=== PATIENT | male | born 1980 | race Caucasian/White ===

== ENCOUNTER 2017-10-13 15:15 | Emergency (ER) | payer BC ==
[~2017-10-13] VITALS: Ht 177.8 cm; Wt 142.9 kg
[~2017-10-13 15:15] MED LIST: A/B OTIC15 ML; APAP500 MG PO; CALCIUM1 TA1 PO; MAGNESIUM OXID400 MG PO; VITAMIN B121000 MCG PO
[2017-10-13 17:45] VITALS: BP 134/89
== END 2017-10-13 17:25 | disposition home or self-care (01) ==
LOC: ED 15:15
DX: M25.572 Pain in left ankle and joints of left foot (principal); M79.89 Other specified soft tissue disorders; X50.1XXA Overexertion from prolonged static or awkward postures, initial encounter; Y93.89 Activity, other specified; Y99.8 Other external cause status; Y92.89 Other specified places as the place of occurrence of the external cause

== ENCOUNTER 2018-02-14 16:03 | Emergency (ER) | payer BC ==
[~2018-02-14] VITALS: Ht 175.3 cm; Wt 146.5 kg
[2018-02-14 16:06] VITALS: Ht 175.3 cm; Wt 146.5 kg
[2018-02-14 17:10] VITALS: BP 143/76
== END 2018-02-14 17:10 | disposition home or self-care (01) ==
LOC: ED 16:03
DX: K08.89 Other specified disorders of teeth and supporting structures (principal); R03.0 Elevated blood-pressure reading, without diagnosis of hypertension
CPT/HCPCS: J0696; J1885

== ENCOUNTER 2018-04-04 21:09 | Inpatient (IN) | payer BC ==
[~2018-04-04] VITALS: Ht 175.3 cm; Wt 149.7 kg
[2018-04-04 21:11] VITALS: Ht 175.3 cm; Wt 149.7 kg
[2018-04-04 22:15] LABS: BASOPHIL % 0.5 % (0-2); PLATELET COUNT 293 x10^3mcL (130-400)
[2018-04-04 22:16] LABS: RED CELL DISTRIBUTION WIDTH 14.9 % (11.5-14.5)
[2018-04-04 22:31] LABS: ALKALINE PHOSPHATASE 91 U/L (46-116); AST/SGOT 19 U/L (15-37); BILIRUBIN TOTAL 0.27 mg/dL (0.20-1.00); CARBON DIOXIDE 28.4 mmol/L (21-32); CHLORIDE SERUM 106 mmol/L (98-107); MAGNESIUM 2.2 mg/dL (1.8-2.4); POTASSIUM SERUM 3.7 mmol/L (3.5-5.1); SODIUM SERUM 143 mmol/L (136-145); TOTAL PROTEIN, SERUM 7.2 g/dL (6.4-8.2)
[2018-04-04 22:38] LABS: T3 TOTAL 1.28 ng/mL
[2018-04-04 22:42] LABS: ALBUMIN 3.6 g/dL (3.4-5.0); ALT/SGPT 47 U/L (16-63); CALCIUM 8.7 mg/dL (8.5-10.1); CREATININE SERUM 1.1 mg/dL (0.7-1.3); GFR1 > 60 mL/min; GLUCOSE SERUM 116 mg/dL (74-106)
[2018-04-04 23:06] LABS: FREE T4 0.85 ng/dL (0.76-1.46); FREE THYROXINE INDEX 2.4 ug/dL (1.4-4.5); T4(THYROXINE) 7.1 ug/dL (4.7-13.3)
[2018-04-04 23:11] LABS: AMPHETAMINE QUAL UR NONE DETECTED (NEG <=1000)
[2018-04-04 23:24] LABS: CHOLESTEROL/HDL RATIO 4.8
[2018-04-05 01:26] VITALS: BP 122/73
[2018-04-05 05:22] VITALS: BP 130/74
[2018-04-05 06:51] LABS: BASOPHIL % 0.5 % (0-2); PLATELET COUNT 243 x10^3mcL (130-400)
[2018-04-05 06:56] LABS: CARBON DIOXIDE 26.6 mmol/L (21-32); CHLORIDE SERUM 110 mmol/L (98-107); CREATININE SERUM 0.9 mg/dL (0.7-1.3); GFR1 > 60 mL/min; GLUCOSE SERUM 116 mg/dL (74-106); MAGNESIUM 2.2 mg/dL (1.8-2.4); PHOSPHOROUS 4.3 mg/dL (2.5-4.9); POTASSIUM SERUM 4.1 mmol/L (3.5-5.1); SODIUM SERUM 141 mmol/L (136-145)
[2018-04-05 07:14] LABS: RED CELL DISTRIBUTION WIDTH 14.7 % (11.5-14.5)
[2018-04-05 08:31] VITALS: BP 107/71; BP 107/73
[2018-04-05 12:23] VITALS: BP 129/75
[2018-04-05 16:38] VITALS: BP 126/66
[2018-04-05 19:02] LABS: microscopic required? NO
[2018-04-05 19:05] LABS: urine erythrocyte NEGATIVE (NEGATIVE)
[2018-04-05 20:15] VITALS: BP 111/58
[2018-04-06 05:56] VITALS: BP 99/70
[2018-04-06 06:27] LABS: BASOPHIL % 0.6 % (0-2); PLATELET COUNT 272 x10^3mcL (130-400)
[2018-04-06 06:33] LABS: CALCIUM 8.5 mg/dL (8.5-10.1); CARBON DIOXIDE 28.1 mmol/L (21-32); CHLORIDE SERUM 104 mmol/L (98-107); CREATININE SERUM 0.8 mg/dL (0.7-1.3); GFR1 > 60 mL/min; GLUCOSE SERUM 109 mg/dL (74-106); MAGNESIUM 2.4 mg/dL (1.8-2.4); PHOSPHOROUS 4.8 mg/dL (2.5-4.9); SODIUM SERUM 138 mmol/L (136-145)
[2018-04-06 08:50] VITALS: BP 108/69
[2018-04-06] MEDS ORDERED: LIPI10 PO (12:56)
[2018-04-06 13:10] VITALS: BP 115/58
[2018-04-06 14:09] VITALS: BP 108/67
[2018-04-06 16:26] VITALS: BP 120/83
== END 2018-04-06 17:04 | disposition home or self-care (01) | DRG 307 ==
LOC: ED 21:09 → DU 04-05 00:28
PROVIDERS: Emergency Medicine; Family Medicine
PROC: 0YB Anatomical Regions, Lower Extremities, Excision (ICD-10-PCS; principal; 2018-04-05)
DX: I08.1 Rheumatic disorders of both mitral and tricuspid valves (principal); Z68.42 Body mass index [BMI] 45.0-49.9, adult; I49.3 Ventricular premature depolarization; R22.42 Localized swelling, mass and lump, left lower limb; I10 Essential (primary) hypertension; E78.2 Mixed hyperlipidemia; E66.01 Morbid (severe) obesity due to excess calories; R73.03 Prediabetes; E87.8 Other disorders of electrolyte and fluid balance, not elsewhere classified
CPT/HCPCS: 82962; 83880; 84439; 85378; J1644; J1940; J2001; J7030; Q0092; Q9967

== ENCOUNTER 2019-06-17 08:24 | Inpatient (IN) | payer BC ==
[~2019-06-17] VITALS: Ht 175.3 cm; Wt 149.4 kg
[~2019-06-17 08:24] MED LIST changes: +LIPI10 PO
--- NOTE | 2019-06-17 08:34 | NUR ---
DR JACOBSON IN TRIAGE FOR EVAL
--- NOTE | 2019-06-17 08:35 | NUR ---
RECEIVED PT, EKG COMPLETE, MD AT BEDSIDE
[2019-06-17 08:58] LABS: PLATELET COUNT 297 x10^3mcL (130-400)
[2019-06-17 09:09] LABS: CALCIUM 9.3 mg/dL (8.5-10.1); CARBON DIOXIDE 28.3 mmol/L (21-32); CHLORIDE SERUM 106 mmol/L (98-107); CREATININE SERUM 0.9 mg/dL (0.7-1.3); GFR1 > 60 mL/min; GLUCOSE SERUM 111 mg/dL (74-106); POTASSIUM SERUM 3.7 mmol/L (3.5-5.1); SODIUM SERUM 143 mmol/L (136-145)
[2019-06-17 09:14] LABS: ALBUMIN 3.8 g/dL (3.4-5.0); ALKALINE PHOSPHATASE 85 U/L (46-116); ALT/SGPT 67 U/L (16-63); AST/SGOT 25 U/L (15-37); BILIRUBIN TOTAL 0.5 mg/dL (0.20-1.00); CHOLESTEROL 193 mg/dL (<200); CHOLESTEROL/HDL RATIO 4.6; HDL CHOLESTEROL 42 mg/dL (40-60); LIPASE 101 IU/L (73-393); TOTAL PROTEIN, SERUM 7.6 g/dL (6.4-8.2); TRIGLYCERIDES 79 mg/dL (<150)
--- NOTE | 2019-06-17 09:17 | NUR ---
PT GIVEN URINAL TO PROVIDE SAMPLE.
[2019-06-17 09:20] LABS: T3 TOTAL 1.31 ng/mL
--- NOTE | 2019-06-17 09:20 | NUR ---
URINE OBTRAINED AND SENT TO LAB
[2019-06-17 09:21] LABS: FREE T4 1.03 ng/dL (0.76-1.46); FREE THYROXINE INDEX 2.8 ug/dL (1.4-4.5); T4(THYROXINE) 8.6 ug/dL (4.7-13.3)
[2019-06-17 09:25] LABS: microscopic required? NO
[2019-06-17 09:39] LABS: UA SPECIFIC GRAVITY 1.025 (1.005-1.035); urine erythrocyte NEGATIVE (NEGATIVE)
--- NOTE | 2019-06-17 10:10 | NUR ---
DR. COLEMAN AT BEDSIDE EXPLAINING TO PT AND THAT [facility] NUGENT HAS NOT GOTTEN BACK TO [place] REGARDING A PT REQUESTED TRANSFER. MD EXPLAINED THAT HE COULD ADMIT PT AND ONCE JABARI NUGENT IS ABLE TO ACCEPT HIM, HE CAN TRANSFER AT THAT TIME. PT STATED THAT THEY ARE CALLING A SPECIFIC DOCTOR AT [facility] AND ASKED FOR AN ADDITIONAL 2 HRS TIME TO DECIDE.
--- NOTE | 2019-06-17 10:14 | NUR ---
PT APPEARS COMFORTABLE, NO C/O CHEST PAIN. VSS. NO S/S OF DISTRESS AT THIS TIME
[2019-06-17 10:19] LABS: AMPHETAMINE QUAL UR NONE DETECTED (See below)
[2019-06-17] MEDS ORDERED: PROTONIX20 MG (11:06)
--- NOTE | 2019-06-17 11:10 | NUR ---
REPORT GIVEN TO KVNG FARRELL RN. ALL QUESTIONS ANSWERED. 1 TECH AVAIL FOR TRANSPORT, NO FLOAT RN'S AT THIS TIME.
--- NOTE | 2019-06-17 11:55 | NUR ---
RECEIVED PT FROM ER ON A GURNEY. REPORT GIVEN BY OSVALDO ALEJANDRA. PT IS AAOX4. RESP EVEN, SHALLOW AND UNLABORED. LUNG SOUNDS DIMINISHED BILATERALLY. ON O2 N/C AT 2LPM. NO COUGH OR SOB. TELE [address] READING NSR. PT DENIES C/P, PRESSURE, PALPITATIONS AT THIS TIME. ABDOMEN SOFT, ROUND, NONTENDER, NONDISTENDED. BOWEL SOUNDS ACTIVE X4 QUADS. DENIES N/V. PERIPHERAL PULSES MODERATELY PALPABLE. NO EDEMA NOTED. CAP REFILL < 3 SECS. DENIES NUMBNESS AND TINGLING. IV CATH TO LAC N/S LOCKED, FLUSHED AND PATENT. NO S/S OF INFECTION NOTED. PT HAS R LOWER ANTERIOR EXTREMITY REDNESS WITH SMALL SCATTERED SCABS, ELECTRONICS MANUFACTURER. PT ORIENTED TO ROOM AND CALL LIGHT. BED IN LOW POSTION. AT BEDSIDE. WILL CONTINUE TO MONITOR.
--- NOTE | 2019-06-17 13:32 | NUR ---
RECEIVED ORDER FROM CHERELLE GUARDADO NP. PT MAY HAVE CARDIAC DIET. ORDER NOTED AND CARRIED OUT. PT MADE AWARE.
[2019-06-17 13:34] VITALS: BP 112/56
--- NOTE | 2019-06-17 16:02 | NUR ---
DR. HUTCHINSON MET WITH AND DISCUSSED POC. NO NEW ORDERS AT THIS TIME.
--- NOTE | 2019-06-17 16:05 | NUR ---
PRILOSEC 20 MG PO GIVEN TO PT AND TOLERATED WELL. PT DENIES C/P AND DISCOMFORT. AT BEDSIDE. CALL LIGHT WITHIN REACH.
[2019-06-17 16:12] VITALS: BP 111/58
--- NOTE | 2019-06-17 18:35 | NUR ---
PT IS AAOX4. RESP EVEN AND UNLABORED. NO DISTRESS NOTED. DENIES C/P, PRESSURE AND PALPTATIONS. DENIE PAIN AND DISCOMFORT. TELE [address] READING NSR. IV CATH TO LAC N/S LOCKED. SITE WNL. CALL LIGHT WITHIN REACH. WILL ENDORSE ALL CARE TO NOC RN.
--- NOTE | 2019-06-17 19:30 | NUR ---
RECEIVED PT FROM PREVIOUS SHIFT NURSE. PT AOX4. DENIES HANNA/DIZZINESS. ON TELE #2, NSR. DENIES CP/PRESSURE. DENIES SOB/DIFFICULTY BREATHING, ON RA. RLE ERYTHEMA, DRY SCABS NOTED, JIMENEZ. IV TO LAC, INTACT AND PATENT. BED IN LOWEST POSITION. CALL LIGHT WITHIN REACH. WILL CONTINUE TO MONITOR.
[2019-06-17 21:37] VITALS: Ht 175.3 cm; Wt 149.4 kg
[2019-06-17 21:52] VITALS: BP 106/59
--- NOTE | 2019-06-18 01:12 | NUR ---
RECEIVED CALL FROM TELE MONITOR THAT PT HR GOES DOWN TO 40S, PT SLEEPING/RESTING IN BED, RR EVEN AND UNLABORED, IN NO ACUTE DISTRESS.
--- NOTE | 2019-06-18 03:30 | NUR ---
PT RESTING IN BED. RR EVEN AND UNLABORED. IN NO ACUTE DISTRESS. CALL LIGHT WITHIN REACH. BED IN LOWEST POSITION. WILL CONTINUE TO MONITOR.
[2019-06-18 05:40] LABS: BASOPHIL % 0.5 % (0-2); PLATELET COUNT 245 x10^3mcL (130-400)
[2019-06-18 05:46] LABS: CALCIUM 8.9 mg/dL (8.5-10.1); CHLORIDE SERUM 106 mmol/L (98-107); CREATININE SERUM 0.8 mg/dL (0.7-1.3); GFR1 > 60 mL/min; GLUCOSE SERUM 101 mg/dL (74-106); MAGNESIUM 2.3 mg/dL (1.8-2.4); POTASSIUM SERUM 3.7 mmol/L (3.5-5.1); SODIUM SERUM 141 mmol/L (136-145)
[2019-06-18 05:50] VITALS: BP 123/62
[2019-06-18 06:01] LABS: RED CELL DISTRIBUTION WIDTH 15.3 % (11.5-14.5)
--- NOTE | 2019-06-18 07:30 | NUR ---
RECEIVED PT FROM HARDWARE TEST ENGINEER. PT AWAKE, ALERT. A/OX4. PT ON ROOM AIR WITH NO RESP DISTRESS NOTED. PT ON TELE 2, DENIES CHEST PAIN, DENIES HEADACHE. IV ACCESS LAC, CDI, SALINE LOCKED. PERIPHERAL PULSES PALPABLE, NO EDEMA NOTED. PT REPORTS BM THIS MORNING WITH NO ISSUES. VOIDS FREELY. PT AMBULATORY, NO WEAKNESS IDENTIFIED. PT DENIES ANY PAIN AT THIS TIME. SAFETY MEASURES IN PLACE, BED LOW AND LOCKED. CALL LIGHT WITHIN REACH.
[2019-06-18 09:28] VITALS: BP 118/58
--- NOTE | 2019-06-18 09:28 | NUR ---
PT REFUSES COLACE AT THIS TIME. PT REPORTS HAVING "NO PROBLEMS" WITH BOWEL MOVEMENTS. NO ACUTE DISTRESS OR DISCOMFORT NOTED AT THIS TIME.
--- NOTE | 2019-06-18 11:00 | NUR ---
PT REPORTS BLEEDING FROM IV SITE. IV ACCESS REMOVED WITH CATHETER INTACT. NO SWELLING OR REDNESS NOTED. WILL CONT TO MONITOR.
[2019-06-18 12:10] VITALS: BP 118/70
[2019-06-18 12:19] VITALS: BP 118/70
--- NOTE | 2019-06-18 12:55 | NUR ---
DISCHARGE INSTRUCTIONS/EDUCATION PROVIDED TO PATIENT. PT TO FOLLOW UP WITH PCP. PT VERBALIZED UNDERSTANDING. PT DENIES CHEST PAIN, OR SOB AT THIS TIME. SAFETY MEASURES MAINTAINED. PT DISCHARGED TO HOME BY PRIVATE AUTO WITH FAMILY MEMBER.
== END 2019-06-18 13:00 | disposition home or self-care (01) | DRG 313 ==
LOC: ED 08:24 → DU 10:52
PROVIDERS: Specialist; ADMIT Internal Medicine
DX: R07.9 Chest pain, unspecified (principal); Z68.42 Body mass index [BMI] 45.0-49.9, adult; E66.01 Morbid (severe) obesity due to excess calories; K21.9 Gastro-esophageal reflux disease without esophagitis; Z87.891 Personal history of nicotine dependence
CPT/HCPCS: 83880; 84439; G0378; G0480; J7030; Q0092